=== PATIENT | female | born 1970 | race Caucasian/White ===

== ENCOUNTER 2019-12-09 08:41 | Emergency (ER) | payer MEDICARE ==
[~2019-12-09] VITALS: Ht 154.9 cm; Wt 127.3 kg
[2019-12-09 08:44] VITALS: Ht 154.9 cm; Wt 127.3 kg
[2019-12-09 09:39] LABS: BASOPHILS 0.2 % (0-2); EOSINOPHILS 2.5 % (0-7); HEMATOCRIT 37.3 % (36.0-48.0); HEMOGLOBIN 10.4 g/dL (12-16); IMMATURE GRANULOCYTES 0.3 % (0-5); LYMPHOCYTES 9.2 % (15-50); MCH 22.9 pg (26.0-34.0); MCHC 27.9 g/dL (31.0-37.0); MCV 82.2 fL (80.0-100.0); MEAN PLATELET VOLUME 7.9 fL (7.4-10.4); NEUTROPHILS 75.8 % (40-80); PLATELET COUNT 299 10x3/uL (130-400); RBC 4.54 10x6/uL (4.00-5.40); RDW 18.4 % (11.5-14.5); WBC 9.7 10x3/uL (4.8-10.8)
[2019-12-09 09:47] LABS: CALC OSMOLALITY 282 mosm/kg (275-300); CALCIUM 8.6 mg/dL (8.5-10.1); CARBON DIOXIDE 35.3 mmol/L (21.0-32.0); CHLORIDE - SERUM 105 mmol/L (98-107); CREATININE - SERUM 0.8 mg/dL (0.6-1.3); GLUCOSE 100 mg/dL (74-106); SODIUM 142 mmol/L (136-145); UREA NITROGEN 13 mg/dL (7-18); eGFR NON AFRICAN AMERICAN 80 mL/min (90-120)
[2019-12-09] MEDS ORDERED: CLEOCIN HCL300 MG PO (09:49)
[2019-12-09] MEDS ORDERED: IBUPROFEN800 MG PO (09:49)
[2019-12-09] MEDS ORDERED: ACETAMINOPHEN500 M1 PO (09:49)
[2019-12-09 09:53] LABS: ALKALINE PHOSPHATASE 106 U/L (30-120); ALT (SGPT) 14 U/L (10-68); BILIRUBIN - TOTAL 0.62 mg/dL (0.2-1.3); PROTEIN - SERUM 7.6 g/dL (6.4-8.2)
[2019-12-09 09:59] LABS: INR 1.08 (0.85-1.17); PROTIME 13.9 SECONDS (11.6-15.0)
[2019-12-09 10:44] VITALS: BP 167/82
== END 2019-12-09 10:46 | disposition home or self-care (01) ==
LOC: D.ER 08:41
PROVIDERS: Family Medicine
DX: M25.562 Pain in left knee (principal); M23.91 Unspecified internal derangement of right knee; W19.XXXA Unspecified fall, initial encounter; Y93.9 Activity, unspecified; Y92.9 Unspecified place or not applicable

== ENCOUNTER 2019-12-15 20:26 | Emergency (ER) | payer MEDICARE ==
[~2019-12-15] VITALS: Ht 154.9 cm; Wt 127.3 kg
[~2019-12-15 20:26] MED LIST: ACETAMINOPHEN500 M1 PO; CLEOCIN HCL300 MG PO; IBUPROFEN800 MG PO
[2019-12-15 20:39] VITALS: Ht 154.9 cm; Wt 127.3 kg
[2019-12-15 21:15] LABS: BASOPHILS 0.2 % (0-2); EOSINOPHILS 2.6 % (0-7); HEMATOCRIT 37.5 % (36.0-48.0); HEMOGLOBIN 10.4 g/dL (12-16); IMMATURE GRANULOCYTES 0.4 % (0-5); MCH 22.4 pg (26.0-34.0); MCHC 27.7 g/dL (31.0-37.0); MCV 80.6 fL (80.0-100.0); MEAN PLATELET VOLUME 7.9 fL (7.4-10.4); MONOCYTES 8.8 % (2-11); PLATELET COUNT 342 10x3/uL (130-400); RBC 4.65 10x6/uL (4.00-5.40); RDW 18.4 % (11.5-14.5); WBC 11.4 10x3/uL (4.8-10.8)
[2019-12-15 21:29] LABS: INR 0.99 (0.85-1.17)
[2019-12-15 21:30] LABS: BILIRUBIN NEGATIVE (NEGATIVE); GLUCOSE NEGATIVE (NEGATIVE); KETONE NEGATIVE (NEGATIVE); NITRITE NEGATIVE (NEGATIVE); SPECIFIC GRAVITY 1.015 (1.005-1.020); UROBILINOGEN NORMAL (NORMAL)
[2019-12-15 21:31] LABS: D-DIMER-QUANTITATIVE 1.22 ug/mLFEU (0.20-0.54)
[2019-12-15 21:37] LABS: ANION GAP 7.5 mmol/L (8-16); CALCIUM 8.7 mg/dL (8.5-10.1); CARBON DIOXIDE 28.6 mmol/L (21.0-32.0); POTASSIUM - SERUM 4.1 mmol/L (3.5-5.1)
[2019-12-15 21:50] LABS: ALBUMIN 2.9 g/dL (3.4-5.0); BILIRUBIN - TOTAL 0.64 mg/dL (0.2-1.3); C-REACTIVE PROTEIN 3.8 mg/dL (0.0-0.9); PROTEIN - SERUM 7.4 g/dL (6.4-8.2)
[2019-12-16] MEDS ORDERED: LEVAQUIN750 MG PO (00:59)
[2019-12-16] MEDS ORDERED: NYSTATIN1 PWD TOPICAL (00:59)
[2019-12-16 01:03] VITALS: BP 148/102
== END 2019-12-16 01:03 | disposition home or self-care (01) ==
LOC: D.ER 20:26
PROVIDERS: Family Medicine
DX: M79.604 Pain in right leg (principal); E66.01 Morbid (severe) obesity due to excess calories; B35.6 Tinea cruris

== ENCOUNTER 2020-01-10 06:12 | Emergency (ER) | payer MEDICARE ==
[~2020-01-10] VITALS: Ht 154.9 cm; Wt 159.1 kg
[~2020-01-10 06:12] MED LIST changes: +LEVAQUIN750 MG PO; +NYSTATIN1 PWD TOPICAL
[2020-01-10 06:13] VITALS: BP 195/80; Ht 154.9 cm; Wt 159.1 kg
[2020-01-10] MEDS ORDERED: AUGMENTIN 875-11 TAB PO (06:52)
[2020-01-10] MEDS ORDERED: HYDROCODON-ACE1 EA10 PO (06:52)
== END 2020-01-10 07:14 | disposition home or self-care (01) ==
LOC: D.ER 06:12
DX: S01.511A Laceration without foreign body of lip, initial encounter (principal); W18.30XA Fall on same level, unspecified, initial encounter; Y92.003 Bedroom of unspecified non-institutional (private) residence as the place of occurrence of the external cause

== ENCOUNTER 2020-02-08 18:45 | Emergency (ER) | payer MEDICARE ==
[~2020-02-08] VITALS: Ht 154.9 cm; Wt 127.3 kg
[~2020-02-08 18:45] MED LIST changes: +AUGMENTIN 875-11 TAB PO; +HYDROCODON-ACE1 EA10 PO
[2020-02-08 18:48] VITALS: Ht 154.9 cm; Wt 127.3 kg
[2020-02-08] MEDS ORDERED: KEFLEX500 MG PO (18:50)
[2020-02-08] MEDS ORDERED: IBUPROFEN800 MG PO (18:51)
[2020-02-08] MEDS ORDERED: NORCO 7.5-3251 EACH PO (18:52)
[2020-02-08 22:00] VITALS: BP 145/77
== END 2020-02-09 03:01 | disposition home or self-care (01) ==
LOC: D.ER 18:45
DX: S39.012A Strain of muscle, fascia and tendon of lower back, initial encounter (principal); W07.XXXA Fall from chair, initial encounter; S83.91XA Sprain of unspecified site of right knee, initial encounter; S83.92XA Sprain of unspecified site of left knee, initial encounter; M79.605 Pain in left leg; M79.604 Pain in right leg